=== PATIENT | female | born 1965 | race Caucasian/White ===

== ENCOUNTER 2022-03-05 08:00 | Outpatient (RCR) | payer BC, SELFPAY | END 2022-03-05 08:05 | disposition home or self-care (01) | LOC: PT 08:00 | PROVIDERS: Visit Provider Orthopaedic Surgery | DX: S46.011D Strain of muscle(s) and tendon(s) of the rotator cuff of right shoulder, subsequent encounter (principal) | CPT/HCPCS: 97010; 97014; 97016; 97033; 97110; 97140; 97163; 97164; G0283 ==

== ENCOUNTER 2023-02-25 15:27 | Emergency (ER) | payer BC, SELFPAY ==
--- NOTE | 2023-02-25 15:30 | ED_ITS ---
Discharge Plan Discharge ED Provider: Lawrence Greene [facility] General Stated complaint: pre-employment physical Time Seen by Provider: 02/25/23 15:30 [facility] Disclaimer: The information contained in this section may have been updated after the patient was seen, as this information can be updated by other users. Procedures Limited Ultrasound Disclaimer: This study was performed by me, and I personally interpreted all images. Based on my clinical judgment, this images were adequate/inadequate and did/did not necessitate further imaging.
[2023-02-25 15:34] VITALS: BP 0/0; PULSE 0; RESP 0; TEMP -17.7; TEMP 0
== END 2023-02-25 15:35 | disposition left against medical advice (07) ==
PROVIDERS: Emergency Provider Nurse Practitioner Family
DX: Z53.21 Procedure and treatment not carried out due to patient leaving prior to being seen by health care provider (principal)
CPT/HCPCS: 99211

== ENCOUNTER 2024-05-12 11:06 | Outpatient (CLI) | payer BC, SELFPAY | END 2024-05-12 23:59 | disposition home or self-care (01) | LOC: LAB.DROPOF 05-13 11:06 | PROVIDERS: PCP Nurse Practitioner; Visit Provider Nurse Practitioner | DX: N39.0 Urinary tract infection, site not specified (principal) | CPT/HCPCS: 87086; 87088; 87186 ==

== ENCOUNTER 2024-07-20 12:00 | Outpatient (CLI) | payer BC, SELFPAY ==
[2024-07-20 16:24] LABS: Microscopic, Urine URINE MICROSCOPIC (MICROSCOPIC)
[2024-07-20 21:03] LABS: Appearance,Urine CLEAR (Clear); Bilirubin,Urine Negative (Negative); Blood, Urine Negative (Negative); Color,Urine YELLOW (Yellow); Glucose,Urine (UA) Negative (Negative); Ketones,Urine Negative (Negative); Leukocyte Esterase,Urine TRACE (Negative); Nitrate,Urine Negative (Negative); Protein,Urine Negative (Negative); Specific Gravity, Urine 1.015 (1.005-1.030); Urobilinogen,Urine 0.2 EU/dl (0.2)
[2024-07-20 21:17] LABS: Bacteria,Urine Trace /lpf
[2024-07-25 07:12] LABS: Atopobium vaginae Low - 0 Score (.); BVAB2 Low - 0 Score (.); Candida albicans NAA Negative (Negative); Candida glabrata Negative (Negative); Chlamydia Trachomatis NAA Negative (Negative); HSV 1 NAA Negative (Negative); HSV 2 NAA Negative (Negative); Megasphaera 1 Low - 0 Score (.); Neisseria gonorrhoeae NAA Negative (Negative); Trich vag NAA Negative (Negative)
== END 2024-07-20 23:59 | disposition home or self-care (01) ==
LOC: LAB.DROPOF 07-21 08:52
PROVIDERS: Urology; PCP Nurse Practitioner; Visit Provider Nurse Practitioner
DX: N39.0 Urinary tract infection, site not specified (principal)
CPT/HCPCS: 81001; 87086; 87491; 87529; 87591; 87661; 87798; 87801

== ENCOUNTER 2024-07-21 18:51 | Outpatient (CLI) | payer BC, SELFPAY ==
[2024-07-21 19:11] LABS: Basophils # 0.1 K/mm3 (0-0.2); Basophils % 1.1 % (0.1-2.0); Eosinophils # 0.2 K/mm3 (0.0-0.4); Eosinophils % 3.5 % (0.1-12.0); Hematocrit 45.2 % (37.0-47.0); Hemoglobin 14.6 g/dL (12.2-16.2); Lymphocytes # 2.2 K/mm3 (0.7-4.5); Lymphocytes % 35.6 % (10-50); Mean Corpuscular HGB Conc 32.2 g/dL (31.8-35.4); Mean Corpuscular Hemoglobin 30.2 pg (27.0-31.2); Mean Corpuscular Volume 93.8 fl (81-99); Monocytes # 0.4 K/mm3 (0.1-1.0); Neutrophils # 3.3 K/mm3 (1.8-7.8); Neutrophils % 53.7 % (37.0-80.0); Platelet Count 243 K/mm3 (142-424); Red Blood Count 4.82 M/mm3 (4.20-5.40); Red Cell Distribution Width 13.3 % (11.5-17.5); White Blood Count 6.2 K/mm3 (4.8-10.8)
[2024-07-21 19:33] LABS: Blood Urea Nitrogen 14 mg/dl (7-17); Estimated Glomerular Filt Rate 86 ml/min (>60); GFR (African American) 104 ML/MIN (>60)
[2024-07-21 19:34] LABS: Anion Gap 6.3 mEq/L (5-15); Blood Urea Nitrogen 14 mg/dl (7-17); Calcium 9.3 mg/dl (8.4-10.2); Carbon Dioxide 27 mmol/L (22.0-30.0); Chloride 107 mmol/L (98-107); Estimated Glomerular Filt Rate 73 ml/min (>60); GFR (African American) 89 ML/MIN (>60); Glucose 100 mg/dl (74-100); Potassium 4.3 mmoL/L (3.5-5.1); Sodium 136 mmol/L (136-145)
== END 2024-07-21 23:59 | disposition home or self-care (01) ==
PROVIDERS: PCP Nurse Practitioner; Visit Provider Urology
DX: R31.0 Gross hematuria (principal); N39.0 Urinary tract infection, site not specified; R31.9 Hematuria, unspecified
CPT/HCPCS: 80048; 82565; 84520; 85025

== ENCOUNTER 2024-08-03 14:06 | Outpatient (CLI) | payer BC, SELFPAY ==
--- NOTE | 2024-08-03 14:08 | CT_ITS ---
FINAL REPORT TECHNIQUE: Axial CT images of the abdomen and pelvis were obtained before and after the administration of IV contrast. This study was performed with techniques to keep radiation doses as low as reasonably achievable (ALARA). Individualized dose reduction techniques using automated exposure control or adjustment of mA and/or kV according to the patient''s size were employed. CLINICAL HISTORY: UTI COMPARISON: None FINDINGS: Abdomen: The lung bases are clear. The heart is normal in size. There is mild biliary ductal dilatation, favor postcholecystectomy change. The gallbladder has been surgically resected. The spleen is unremarkable. No adrenal masses present. The pancreas has an unremarkable appearance. The kidneys enhance normally. The aorta is normal in caliber. There is no free fluid or adenopathy. No mass or abnormal fluid collection is seen. Precontrast images demonstrate no evidence of nephrolithiasis. Pelvis: The appendix is not well-seen, and may have been surgically removed. The urinary bladder is unremarkable. No inflammatory process is seen. There is no evidence of mass or adenopathy. There is no evidence of bowel obstruction. IMPRESSION: Mild biliary ductal dilatation, favor post cholecystectomy change. No acute abdominal or pelvic abnormality is identified. Reviewed, Interpreted and Dictated by Dewayne Henriquez III, MD Transcribed by Bella Garza Authenticated and [facility]
[2024-08-03] MEDS: SODIUM CHLORIDE 0.9% 10ML SYR (RAD ONLY) 10 ML IV (14:31)
[2024-08-03] MEDS: IOPAMIDOL-370 (76%);100ML BOTTLE 75 ML IV (14:31)
== END 2024-08-03 23:59 | disposition home or self-care (01) ==
LOC: RAD 14:08
PROVIDERS: PCP Nurse Practitioner; Visit Provider Urology
DX: N39.0 Urinary tract infection, site not specified (principal); R31.9 Hematuria, unspecified; R32 Unspecified urinary incontinence
CPT/HCPCS: 74178; Q9967

== ENCOUNTER 2024-08-24 19:28 | Outpatient (CLI) | payer BC, SELFPAY | END 2024-08-24 23:59 | disposition home or self-care (01) | LOC: LAB.DROPOF 19:29 | PROVIDERS: PCP Nurse Practitioner; Visit Provider Nurse Practitioner | DX: R39.198 Other difficulties with micturition (principal); B96.20 Unspecified Escherichia coli [E. coli] as the cause of diseases classified elsewhere | CPT/HCPCS: 87086; 87088; 87186 ==

== ENCOUNTER 2025-04-01 08:58 | Outpatient (CLI) | payer BC, SELFPAY ==
--- NOTE | 2025-04-01 09:00 | US_ITS ---
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 UTERUS: 5.8 cm x 3.9 cmx 2.6 cm retroverted and retroflexed with a combined endometrial thickness of 6.2mm. There appears to be a small amount of fluid within the endometrium in the lower uterine segment. The endometrium appears thickened here. It also has a cystic appearance. There are 3 fibroids seen and all are located in the anterior myometrium Fibroid 1. 0.97 cm x 0.55 cm x 0.70. Fibroid 2. 1.2 cm x 0.68 cm x 1.1 cm Fibroid 3. 1.5 cm x 1.4 cm x 1.6 cm. LEFT OVARY: 3.8 cmx1.7cm. RIGHT OVARY: 3.0cmx 1.8 cmx1.3cm with a volume of 3.7ml. There is a small follicle in the right ovary measuring 1.2 cm x 0.7 cm x 1.0 cm Both ovaries are seen and appear normal. Doppler flow to both ovaries are seen. There is no fluid in the cul-de-sac. IMPRESSION: 1. Retroverted uterus normal in shape and size. Within the anterior myometrium are 3 small fibroids. The largest measures 1.6 cm. 2. The endometrium appears thickened in the lower uterine segment and there is a small amount of fluid here as well. The endometrium here appears multicystic. Suggest endometrial sampling. 3. Both ovaries are seen and appear normal. The left ovary is slightly larger than the right ovary. There is a follicle in the right ovary measuring 1.2 cm. 4. No fluid in the cul-de-sac. Dictated by: Olivier Villalba MD 04/01/2025 19:17 Olivier Villalba MD in OV 04/01/2025 19:17
== END 2025-04-01 23:59 | disposition home or self-care (01) ==
LOC: RAD 08:58
PROVIDERS: PCP Nurse Practitioner; Visit Provider Obstetrics & Gynecology
DX: D25.1 Intramural leiomyoma of uterus (principal); N83.01 Follicular cyst of right ovary; N83.8 Other noninflammatory disorders of ovary, fallopian tube and broad ligament; R93.89 Abnormal findings on diagnostic imaging of other specified body structures; N85.4 Malposition of uterus; N85.8 Other specified noninflammatory disorders of uterus
CPT/HCPCS: 76830

== ENCOUNTER 2025-04-02 17:41 | Outpatient (CLI) | payer BC, SELFPAY ==
--- NOTE | 2025-04-02 17:44 | XR_ITS ---
PROCEDURE INFORMATION: Exam: XR Right Knee Exam date and time: 04/02/2025 5:45 PM Age: 59 years old Clinical indication: Injury or trauma; Fall; Other: Pain; Additional info: Fall w/trauma TECHNIQUE: Imaging protocol: Radiologic exam of the right knee. Views: 1 or 2 views. Total images: 3 COMPARISON: No relevant prior studies available. FINDINGS: Bones/joints: Osteopenia. No acute fracture or joint dislocation. Age-appropriate joint spaces. No concerning bone lesions or calcifications. Hazy suprapatellar opacity may reflect small joint effusion. Soft tissues: Unremarkable soft tissues. IMPRESSION: 1. No acute osseous abnormality or significant degenerative arthropathy. 2. Probable small joint effusion.
--- OUTSIDE RECORDS SUMMARY | 2025-04-02 17:45 | XMS_ITS | Clinical Summary ---
Author Organization [facility] Address [address] [place] [address] Care Team Providers Care Labor Employment Associate Name Role Phone NuñezJeny DANIEL - EARLY INTERVENTIONIST Primary Care Provider + Allergies No known active allergies Medications PARoxetine (PAXIL) 20 MG tablet Take 20 mg by mouth every morning Active ibuprofen (ADVIL;MOTRIN) 800 MG tablet Take 800 mg by mouth every 6 hours as needed for Pain Active naproxen (NAPROSYN) 500 MG tablet Take 500 mg by mouth 2 times daily (with meals) Active Active Problems Patient Care Coordination No te Formatting of this note migh t be different from the original. lori 12/12/20096 Med agreement 12/12/2015 uds 12/12/2015 Problem Noted Date Diagnosed Date Shoulder pain, right 12/12/2015 Social History Tobacco Use Types Packs/Day Years Used Date Smoking Tobacco: Never Comments Unknown Sex and Gender Information Value Date Recorded Sex Assigned at Not on file Legal Sex Female 11:33 AM EST Gender Identity Not on file Sexual Orientation Not on file Last Filed Vital Signs Vital Sign Reading Time Taken Comments Blood Pressure 145/93 12/12/2015 1:51 PM EST Pulse 106 12/12/2015 1:51 PM EST Temperature - - Respiratory Rate - - Oxygen Saturation 98% 12/12/2015 1:51 PM EST Inhaled Oxygen Concentration - - Weight 68.9 kg (152 lb) 12/12/2015 1:51 PM EST Height - - Body Mass Index - - Plan of Treatment Not on file [place] Care Teams Labor Employment Associate Relationship Specialty Start Date End Date Jeny Nñuez APRN - NP PCP - General 07/09/17
--- OUTSIDE RECORDS SUMMARY | 2025-04-02 17:45 | XMS_ITS | Clinical Summary ---
Author Organization [facility] Address [address] [place] [address] Care Team Providers Care Provider Relations Manager Name Role Phone Jessie Castaneda Primary Care Provider [phone] Allergies No known active allergies Medications Red Yeast Rice Extract (RED YEAST RICE PO) Take by mouth. Active Multiple Vitamin (multivitamin) tablet Take 1 tablet by mouth 1 (one) time each day. Active albuterol (Ventolin HFA) 108 (90 Base) MCG/ACT inhalerIndication s:Seasonal allergic rhinitis due to pollen Inhale 2 puffs every 4 (four) hours if needed for wheezing or shortness of breath. 8 g 3 Active fluticasone (Flonase) 50 MCG/ACT nasal sprayIndications: Seasonal allergic rhinitis due to pollen Administer 1 spray into each nostril 2 (two) times a day. Shake gently. Before first use, prime pump. After use, clean tip and replace cap. 16 g 12 4 Active loratadine (Claritin) 10 MG tabletIndications :Seasonal allergic rhinitis due to pollen Take 1 tablet (10 mg) by mouth 1 (one) time each day. 30 tablet 4 Active ondansetron (Zofran) 4 MG tablet Take 1 tablet (4 mg) by mouth every 6 (six) hours if needed for nausea or vomiting. 20 tablet 4 Active PARoxetine (Paxil) 30 MG tabletIndications :Generalized anxiety disorder Take 1 tablet (30 mg) by mouth 1 (one) time each day in the morning. 90 tablet 2 4 Active atenolol (Tenormin) 25 MG tabletIndications :Essential (primary) hypertension Take 1 tablet (25 mg) by mouth 1 (one) time each day. 90 tablet 3 4 Active Active Problems Problem Noted Date Diagnosed Date Osteopenia after menopause 02/08/2024 Overview (02/08/2024): - DESA ordered 01/2024. Gastroesophageal reflux disease 02/08/2024 Overview (02/08/2024): - Pepcid trial 01/2024. Urinary incontinence 12/26/2022 Overview (01/05/2023): - increasing intermittent episodes of stress incontinence - most recently when chasing after her dog - reports having tried a pessary in the past but did not like it - interested in non-surgical options PLAN - referral to pelvic floor PT placed - start vaginal estrogen Assessment & Plan (12/26/2022 4:14 PM EST): - increasing intermittent episodes of stress incontinence - most recently when chasing after her dog - reports having tried a pessary in the past but did not like it - interested in non-surgical options PLAN - referral to pelvic floor PT placed - start vaginal estrogen Generalized anxiety disorder 02/11/2022 Overview (01/05/2023): - Chronic, well controlled on Paxil 30 mg daily. Assessment & Plan (12/26/2022 4:01 PM EST): - well controlled on paxil 30mg daily - denies pervasive anxiety interfering with daily life PLAN - continue paxil 30mg daily Seasonal allergic rhinitis due to pollen 022 Overview (02/08/2024): - Flonase, Claritin. - Albuterol inhaler PRN Healthcare maintenance 01/24/2022 Overview (02/12/2024): Healthcare Maintenance Immunizations Immunization History Administered Date(s) Administered Hep A, Adult 10/07/2018 Influenza, injectable, quadrivalent 07/17/2016 Influenza, injectable, quadrivalent, preservative free 08/20/2019, 07/21/2020, 07/24/2022 Influenza, injectable, quadrivalent, preservative free, pediatric 07/17/2021 Influenza, seasonal, injectable, preservative free 08/05/2015 MMR 12/27/2015, 07/01/2018 Moderna COVID-19 Vaccine (Veneer Department Manager) 12+ years 10/24/2020, 11/21/2020 Pfizer-BioNTech COVID-19 Bivalent Booster (Perdomo Cap) 12+ years (delicia-sucrose) 07/24/2022 Pfizer-BioNTech COVID-19 Vaccine (Purple Cap) 12+ 08/19/2021 Tdap 10/28/2015, 01/28/2024 Zoster, Recombinant 12/26/2022, 03/27/2023 Cancer Screenings Cervical cancer: Last pap smear 01/2024 with negative cytology and HPV co- testing, repeat 01/2029. Breast cancer: Last mammogram 06/2022 with BIRADS 1, repeat in 06/2023. Overdue, re-ordered. Colon cancer: underwent colonoscopy in [place], [place] at [facility] at the age of 47, reportedly normal. Cologuard negative 12/2023, repeat 12/2026. Lung cancer: never smoker, not indicated Other Screenings DEXA: (2015): Low normal BMD of the lumbar spine, mild osteopenia of the left and right femoral necks. Repeat ordered 01/2024. 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 Ophthalmology: deferred Diet/Exercise The patient received dietary education because they have an above normal BMI. and The patient received exercise education because they have an above normal BMI. Assessment & Plan (12/26/2022 4:03 PM EST): Healthcare Maintenance Immunizations Immunization History Administered Date(s) Administered Hep A, Adult 10/07/2018 Influenza, injectable, quadrivalent 07/17/2016 Influenza, injectable, quadrivalent, preservative free 08/20/2019, 07/21/2020, 07/24/2022 Influenza, injectable, quadrivalent, preservative free, pediatric 07/17/2021 Influenza, seasonal, injectable, preservative free 08/05/2015 MMR 12/27/2015, 07/01/2018 Moderna COVID-19 Vaccine (Veneer Department Manager) 12+ years 10/24/2020, 11/21/2020 Pfizer-BioNTech COVID-19 Bivalent Booster (Perdomo Cap) 12+ years (delicia-sucrose) 07/24/2022 Pfizer-BioNTech COVID-19 Vaccine (Purple Cap) 12+ 08/19/2021 Tdap 10/28/2015 - shringrix today in clinic Cancer Screenings ? Cervical cancer: pap last done 2018 with negative cytology and HPV co-testing (will attempt to obtain records), pap smear due 2023. ? Breast cancer: Last mammogram 06/2022 with BIRADS 1, repeat in 06/2023. ? Colon cancer: underwent colonoscopy in [place], [place] at [facility] at the age of 47, reportedly normal. Order placed for repeat screening colonoscopy. ? Lung cancer: never smoker, not indicated Other Screenings ? DEXA: (2016): Low normal BMD of the lumbar spine, mild osteopenia of the left and right femoral necks Labs The 10-year ASCVD risk score (Promise SWAIN, et al., 2019) is: 4% Values used to calculate the score: Age: 57 years Sex: Female Is Non- : No Diabetic: No Tobacco smoker: No Systolic Blood Pressure: 128 mmHg Is BP treated: Yes HDL Cholesterol: 49 mg/dL ? Total Cholesterol: 203 mg/dL ? A1c: Lab Results Component Value Date HGBA1C 5.2 07/23/2022 ? 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 Dentist: sees regularly ? Dermatology: Referred 12/2021. ? Ophthalmology: deferred Essential (primary) hypertension 11/20/2016 Overview (02/08/2024): - Chronic, controlled on Atenolol 25 mg daily. - Cough with lisinopril in the past. Assessment & Plan (12/26/2022 4:00 PM EST): - well controlled - BP 128/84 in clinic today - denies lightheadedness, nausea, changes in vision PLAN - continue atenolol 25mg daily Polyarthralgia 11/20/2016 Overview (01/05/2023): - Hand x-ray 12/2021: Mild bilateral osteoarthrosis of the hands. No erosions are noted. - RF in 06/2022 was 33, anti-CCP negative, CRP and ESR negative. Resolved Problems Problem Noted Date Diagnosed Date Resolved Date Traumatic complete tear of right rotator cuff 11/16/19 22 02/08/2024 Overview (02/11/2022): -was injured back late of last year 2020, has since been repaired and notes no issues Left shoulder pain 10/13/2015 4 Right shoulder pain 07/11/2015 02/08/20 24 Left knee pain 02/19/2014 02/08/2024 Patellar contusion 02/19/2014 4 Pain in limb 11/09/2010 02/08/2024 Female stress incontinence 07/15/2008 0 02/08/2024 Disorder of bone and cartilage 06/24/2008 02/08/2024 Unspecified urinary incontinence 06/24/2008 02/08/2024 Excessive or frequent menstruation 06/01/2008 02/08/2024 Acute pain due to trauma 07/08/2007 Encounters Date Type Department Care Team Description 01/01/2025 Education [facility] [address] [place] [address] Kristal Case, RN from Last 3 Months Immunizations Immunization Administration Dates Next Due Hep A, Adult 10/07/2018 Influenza, injectable, quadrivalent 07/17/2016 Influenza, injectable, quadr ivalent, preservative free 07/24/2022,07/21/2020,08/20/2019 Influenza, injectable, quadr ivalent, preservative free, pediatric 07/17/2021 Influenza, seasonal, injecta ble, preservative free 08/05/2015 MMR 07/01/2018,12/27/2015 Moderna COVID-19 Vaccine (Re d Cap) 12+ years 11/21/2020,10/24/2020 Tdap 01/28/2024,10/28/2015 Zoster, Recombinant 03/27/2023,12/26/2022 Family History Medical History Relation Name Comments Alcohol abuse Father Max Heart attack Father Max Heart disease Father Max Hypertension Father Max Arthritis Maternal Grandfather Bashir Rheum arthritis Maternal Grandfather Bashir Rheumatologic disease Maternal Grandfather Bashir Stroke Maternal Grandfather Bashir Arthritis Mother Paige Autoimmune disease Mother Paige Depression Mother Paige Heart attack Mother Paige Heart disease Mother Paige Hypertension Mother Paige Osteoporosis Mother Paige Rheum arthritis Mother Paige Rheumatologic disease Mother Paige Relation Name Status Comments Father Max Maternal Grandfather Bashir Mother Paige Social History Tobacco Use Types Packs/Day Years Used Date Smoking Tobacco: Never Passive Smoke Exposure: Past Smokeless Tobacco: Never Passive Exposure Comments:Wh en she was a child Alcohol Use Standard Drinks/Week Comments Yes 7 (1 standard drink = 0.6 oz pure alcohol) Alcoholic Drinks/day: Minimum alcohol consumption Humiliation, Afraid, Rape, and Kick questionnair e Answer Date Recorded Within the last year, have y ou been afraid of your partner or ex-partner? No 01/24/2024 Within the last year, have y ou been humiliated or emotionally abused in other ways by your partner or ex-partner? No Within the last year, have y ou been kicked, hit, slapped, or otherwise physically hurt by your partner or ex-partner? No 01/24/2024 Within the last year, have y ou been raped or forced to have any kind of sexual activity by your partner or ex-partner? No 01/24/2024 PHQ-2 Answer Date Recorded Patient Health Questionnaire-2 Score 0 01/28/2024 Hunger Vital Sign Answer Date Recorded Within the past 12 months, y ou worried that your food would run out before you got the money to buy more. Never true 01/24/20 24 Within the past 12 months, t he food you bought just didn't last and you didn't have money to get more. Never true 01/24/2024 PRAPARE - Transportation Answer Date Re corded In the past 12 months, has l ack of transportation kept you from medical appointments or from getting medications? No 12/27 In the past 12 months, has l ack of transportation kept you from meetings, work, or from getting things needed for daily living? No 01/24/2024 Housing Stability Vital Sign Answer Tavo e Recorded In the last 12 months, was t here a time when you were not able to pay the mortgage or rent on time? No 01/24/2024 Number of Places Lived in the Last Year Not on f ile 01/24/2024 In the last 12 months, was t here a time when you did not have a steady place to sleep or slept in a alf (including now)? No 01/24/2024 Utilities Answer Date Recorded In the past 12 months has th e electric, gas, oil, or water company threatened to shut off services in your home? No 01/24/2024 PHQ-2A Answer Date Recorded Patient Health Questionnaire-2 Score 0 12/26/2022 Comments No Sex and Gender Information Value Date Recorded Sex Assigned at Not on file Legal Sex Female 6:02 PM EDT Gender Identity Not on file Sexual Orientation Not on file Last Filed Vital Signs Vital Sign Reading Time Taken Comments Blood Pressure 160/98 01/28/2024 9:01 AM EDT Pulse 72 01/28/2024 8:06 AM EDT Temperature 37 C (98.6 F) 01/28/2024 8:06 AM EDT Respiratory Rate 15 11/24/2021 12:4 5 PM EST Oxygen Saturation 95% 12/21/2021 11: 16 AM EST Inhaled Oxygen Concentration - - Weight 70.3 kg (154 lb 15.7 oz) 01/28/2024 8:06 AM EDT Height 162.6 cm (5' 4 ) 12/26/2022 3:40 PM EST Body Mass Index 26.6 12/26/2022 3:40 PM EST Plan of Treatment Health Maintenance Due Date Last Done Comments [facility]-HIV Screening 1965 [facility]-/Child/Adol SDOH Screenings 1965 [facility]- SDOH Screenings 1982 [facility]-Adult SDOH Screenings 1982 CT Colonography 2009 Colonoscopy 2009 FIT 2009 FOBT 2009 Sigmoidoscopy 2009 [facility]-Pneumococcal Vaccine: 50+ Years (1 of 1 - PCV) 2014 XSY-UAXOW-18 Vaccine ( season) 2024 07/24/2022, 08/19/2021, 11/21/2020, Additional history exists [facility]-Breast Cancer Screening 07/23/202406/29, 12/20/2020, 07/05/2015 [facility]-Depression Screening 01/27/2025 01/28/2024, 06/29 [facility]-Influenza Vaccine (Season Ended) 2025 07/24/2022, 07/17/2021, 07/21/2020, Additional history exists FIT-DNA 01/04/2027 01/05/2024 [facility]-Colorectal Cancer Screening 01/04/2027 [facility]-Pap Smear 01/27/2027 01/28/2024 [facility]-Cervical Cancer Screening 01/27/2029 [facility]-HPV/Cotest 01/27/2029 01/28/2024 [facility]-DTaP,Tdap,and Td Vaccines (3 - Td or Tdap) 01/27/2034 01/28/2024, 10/28/2015 [facility]-RSV Vaccine: 60+ Years or (1 - 1-dose 75+ series) 2039 [facility]-Hepatitis C Screening Completed 11/20/2016 [facility]-Hepatitis A Vaccines Aged Out 10/07/2018 No longer eligible based on patient's age to complete this topic [facility]-Zoster Vaccines Completed 03/27/2023, [facility]-Obesity Intervention Completed 024, 01/28/2024, 01/28/2024, Additional history exists HPV Vaccines Aged Out No longer eligi ble based on patient's age to complete this topic [facility]-HIB Vaccines Aged Out No longer e ligible based on patient's age to complete this topic [facility]-IPV Vaccines Aged Out No longer e ligible based on patient's age to complete this topic [facility]-Rotavirus Vaccines Aged Out No lo nger eligible based on patient's age to complete this topic Medical Devices Implanted Type Area Green Meat Packer Device Identifier Shelf Expiration Date Model / Serial / Lot [place] All Suture Qfix 2.8mm - [id number] Implanted:Qty : 1 on 11/24/2021 by Renato Heath MD at [facility] [place] Right: Shoulder [employer] ([employer])-[id number] [id number] 25-2800 / / [id number] [place] Ultra Twinfix 5.5 - [id number] - [id number] Implanted:Qty : 1 on 11/24/2021 by Renato Heath MD at [facility] Right: Shoulder [employer] ([employer])-[id number] 07/04/2026 [id number] / [id number] / Procedures Procedure Name Priority Date/Time Associated Diagnosis Comments PAP TEST - CYTOLOGY Routine 01/28/2024 9 :13 AM EDT Healthcare maintenance LAB COLOGUARD COLON CANCER SCREEN Routine 01/05/2024 11:00 AM EDT Encounter for screening for malignant neoplasm of colon MAMMOGRAPHY BREAST SCREENING TOMOSYNTHESIS BILATERAL Routine 07/23/2022 3:36 PM EDT Healthcare maintenance HEPATITIS C ANTIBODY W/REFLEX TO HCV QUANT PCR Routine 11/20/2016 10:04 AM EST from Last 3 Months or Most Recently Relevant to Health Maintenance Results * Pap Test (01/28/2024 9:13 AM EDT) Case Report Cytology Case: [id number] Authorizing Provider: Jessie Castaneda DO Collected: 01/28/2024 0913 Ordering Location: [facility] Received: 01/29/2024 0924 Internal Medicine First Screen: Madeline Soto Specimen: ThinPrep Pap Test, Liquid-Based Cervical/Vaginal 02/10/2024 2:26 PM EDT [facility] Interpretation NEGATIVE FOR INTRAEPITHELIAL LESION OR MALIGNANCY 02/10/2024 2:26 PM EDT [facility] at 1426 EDT Specimen Adequacy Satisfactory for evaluation; endocervical/membreno sformation zone component present. Slide scanned and imaged by [employer] Imaging System with manual review of all selected brown. 02/10/2024 2:26 PM EDT [facility] Cervical cytology is a screening test primarily for squamous cancers and precursors and has associated false negative and positive results. New technologies such as liquid based sampling may decrease but will not eliminate all false negative results. Regular screening and follow-up of unexplained clinical signs and symptoms are recommended to minimize false negative results. Please see the ASCCP website (www.asccp.org)fo r followup recommendations. If HPV testing was requested, correlation with the results is suggested (please call Microbiology at [phone] for results). 02/10/2024 2:26 PM EDT [facility] Menstrual Status Post-Menopausal 2:26 PM EDT [facility] Contraceptive History Not Applicable 02/10/2024 2:26 PM EDT [facility] Screening Type Routine Screen 2023 2:26 PM EDT [facility] High Risk? No 02/10/2024 2:26 PM EDT [facility] HPV Testing Requested? Request HPV Testing Regardless of Pap Test Findings 02/10/2024 2:26 PM EDT [facility] Previous Cancer History No 02/10/2024 2:26 PM EDT [facility] Clinical Information Z00.00 - Healthcare maintenance [ICD-10-CM] 02/10/2024 2:26 PM EDT [facility] Swab Vaginal and cervical cytologic material / Unknown Non-blood Collection / Unknown 01/28/2024 9:13 AM EDT 01/29/2024 9:24 AM EDT us Jessie Castaneda DO LAB CYTOLOGY ORDERABLES Final Result [facility] [address] [place] [address] * Cologuard?? colon cancer screening (01/05/2024 11:00 AM EDT) Cologuard Negative Negative 01/12/2024 12:05 AM EDT [facility] (CLIA #:[id number]) Comment: NEGATIVE TEST RESULT. A negative Cologuard result indicates a low likelihood that a colorectal cancer (CRC) or advanced adenoma (adenomatous polyps with more advanced pre-malignant features) is present. The chance that a person with a negative Cologuard test has a colorectal cancer is less than 1 in 1500 (negative predictive value >99.9%) or has an advanced adenoma is less than 5.3% (negative predictive value 94.7%). These data are based on a prospective cross-sectional study of 10,000 individuals at average risk for colorectal cancer who were screened with both Cologuard and colonoscopy. (Aguila Becker al, N Engl J Med 2014;370(14):4185-7858) The normal value (reference range) for this assay is negative. COLOGUARD RE-SCREENING RECOMMENDATION: Periodic colorectal cancer screening is an important part of preventive healthcare for asymptomatic individuals at average risk for colorectal cancer. Following a negative Cologuard result, the [place] [employer] and U.S. Multi-Society Task Force screening guidelines recommend a Cologuard re-screening interval of 3 years. References: [place] [employer] Guideline for Colorectal Cancer Screening: https://www.cancer.org/cancer/zthnv-yugeve-jqjhyh/pktmnuedq-swezeinro-iuteqrp/ac s-rec ommendations.html.; Khurram DK, Yomaira CR, Burak ChristensenK, Colorectal Cancer Screening: Recommendations for Physicians and Patients from the U.S. Multi-Society Task Force on Colorectal Cancer Screening , Am J Gastroenterology 2017; 112:4120-8683. TEST DESCRIPTION: Composite algorithmic analysis of stool DNA-biomarkers with hemoglobin immunoassay. Quantitative values of individual biomarkers are not reportable and are not associated with individual biomarker result reference ranges. Cologuard is intended for colorectal cancer screening of adults of either sex, 45 years or older, who are at average-risk for colorectal cancer (CRC). Cologuard has been approved for use by the U.S. FDA. The performance of Cologuard was established in a cross sectional study of average-risk adults aged 50-84. Cologuard performance in patients ages 45 to 49 years was estimated by sub-group analysis of near-age groups. Colonoscopies performed for a positive result may find as the most clinically significant lesion: colorectal cancer [4.0%], advanced adenoma (including sessile serrated polyps greater than or equal to 1cm diameter) [20%] or non- advanced adenoma [31%]; or no colorectal neoplasia [45%]. These estimates are derived from a prospective cross-sectional screening study of 10,000 individuals at average risk for colorectal cancer who were screened with both Cologuard and colonoscopy. (Aguila Becker al, N Engl J Med 2014;370(14):6782-4447.) Cologuard may produce a false negative or false positive result (no colorectal cancer or precancerous polyp present at colonoscopy follow up). A negative Cologuard test result does not guarantee the absence of CRC or advanced adenoma (pre-cancer). The current Cologuard screening interval is every 3 years. ([place] [employer] and U.S. Multi-Society Task Force). Cologuard performance data in a 10,000 patient pivotal study using colonoscopy as the reference method can be accessed at the following location: www.Jdguanjia/results. Additional description of the Cologuard test process, warnings and precautions can be found at www.OneSunogSmartProcurerd.Geoloqi. Stool specimen (specimen) 01/05/2024 11:00 AM EDT 01/07/2024 9:23 AM EDT Jessie Castaneda DO LAB MOLECULAR DIAGNOSTICS GEOVANNA SOTO Final Result [facility] (CLIA #:[id number]) [address] [place] [address], * Mammography Breast Screening Tomosynthesis Bilateral (07/23/2022 3:36 PM EDT) Anatomical Region Laterality Modality Breast Bilateral Mammography Impressions 07/28/2022 3:39 PM EDT No mammographic evidence of malignancy. BI-RADS CATEGORY: Overall: 1 - Negative RECOMMENDATION: - Routine Screening Mammogram in 1 Year. Patient Lifetime Risk Score of Breast Malignancy: 9.7 % This risk assessment is calculated using the Maria M Risk Assessment model which may underestimate the lifetime risk of breast malignancy. COMMUNICATION: Computer-aided detection (CAD) and tomosynthesis were utilized by the radiologist in the interpretation of this examination. The results and recommendations will be sent to the patient in a printed lay language version of the imaging report. Narrative 07/28/2022 3:39 PM EDT EXAM: Mammography Breast Screening with Tomosynthesis REASON FOR EXAM: Screening Mammogram HISTORY: Patient is 56 y.o. Hormone history includes control. Surgical history includes bilateral breast surgery, 2019 (reduction). COMPARISON STUDIES: Compared to: 10/15/2017 Mammography Outside Images Upload at [facility] 12/20/2020 Mammography Outside Images Upload at [facility] BREAST COMPOSITION: The breasts have scattered areas of fibroglandular density. FINDINGS: There are no suspicious masses, calcifications, or areas of architectural distortion. us Jessie Castaneda DO IMG BI PROCEDURES Final Result * Hepatitis C Antibody (11/20/2016 10:04 AM EST) Hepatitis C Antibody NEGATIVE Reference Range: Negative [facility] 11/20/2016 10:0 4 AM EST 11/20/2016 12:58 PM EST Indy Alonso MD LAB BLOOD ORDERABLES Final Re sult [facility] from Last 3 Months or Most Recently Relevant to Health Maintenance Insurance MARIELLA Care Teams Provider Relations Manager Relationship Specialty Start Date End Date Jessie Castaneda DO [address] [id number] PCP - General Internal Medicine 01/24/22
--- OUTSIDE RECORDS SUMMARY | 2025-04-02 17:45 | XMS_ITS | Clinical Summary ---
Author Organization [facility] Address [address] [place] [phone] Phone Care Team Providers Care Floor Renovator Name Role Phone Unavailable Primary Care Provider Unavailabl e Allergies No known active allergies Medications No known medications Active Problems Problem Noted Date Diagnosed Date Mixed stress and urge urinary incontinence 11/11 OAB (overactive bladder) 11/11/2024 History of gross hematuria 11/11/2024 Social History Tobacco Use Types Packs/Day Years Used Date Smoking Tobacco: Never Assessed Comments No Sex and Gender Information Value Date Recorded Sex Assigned at Not on file Legal Sex Female 11:10 AM EST Gender Identity Not on file Sexual Orientation Not on file Obstetrics History Para Term AB IAB SAB Ectopic Multiple Livin g Live Births 1 10 28 Date Outcome GA Total Labor Labor/2nd/3rd Weight Sex Type Anes PTL Shahnaz A1 A5 Name Clin Term Last Filed Vital Signs Vital Sign Reading Time Taken Comments Blood Pressure - - Pulse 69 11/11/2024 9:13 AM EST Temperature - - Respiratory Rate - - Oxygen Saturation 99% 11/11/2024 9:13 AM EST Inhaled Oxygen Concentration - - Weight 72.4 kg (159 lb 9.6 oz) 11/11/2024 9:13 A M EST Height - - Body Mass Index - - Plan of Treatment Health Maintenance Due Date Last Done Comments Annual Wellness Exam 1967 Hepatitis C Screening 1982 HPV/Pap Cotest 1994 Cologuard 2009 Colon Cancer Screening 2009 Colonoscopy 2009 FIT 2009 Sigmoidoscopy 2009 Virtual Colonography 2009 Pneumococcal Vaccine 50+ (1 of 1 - PCV) 2014 COVID-19 Vaccine ( season) 2024 07/24/2022, 08/19/2021, 11/21/2020, Additional history exists Breast Cancer Screening 07/23/2024 07/23/2022, 07/23 Influenza Vaccine (Season Ended) 2025 07/24/2022, 07/17/2021, 07/21/2020, Additional history exists Cervical Cancer Screening 01/27/2027 Pap Smear 01/27/2027 01/28/2024, 01/28/2024 DTaP/TDaP/Td (3 - Td or Tdap) 01/27/2034 01/28/2024, 10/28/2015 Zoster Completed 03/27/2023, 12/26/2022 Hepatitis B Vaccine Aged Out No longe r eligible based on patient's age to complete this topic Meningococcal B Vaccine Aged Out No l onger eligible based on patient's age to complete this topic Insurance [facility] [address] [address] MARIELLA PPO MARIELLA PPO
--- OUTSIDE RECORDS SUMMARY | 2025-04-02 17:45 | XMS_ITS | Encounter Summary ---
Author Organization [facility] Address [address] [place] [address] Care Team Providers Care Retail Pharmacist Name Role Phone Ritu Man FOUNDER & CEO Primary Care Provider [phone] Jessie Castaneda DO Primary Care Provider [phone] Jose Daniel Garcia MD Unavailable [phone] Reason for Visit * Reason Onset Date Comments Med Refill 11/14/2021 Encounter Details Date Type Department Care Team (Late st Contact Info) Description 11/14/2021 Refill [facility] [address] [place] [address] Ritu Man APRN [address] [place] [address] Acute pain of right shoulder Social History Tobacco Use Types Packs/Day Years Used Date Smoking Tobacco: Never Smokeless Tobacco: Never Alcohol Use Standard Drinks/Week Comments Yes 4 (1 standard drink = 0.6 oz pure alcohol) Alcoholic Drinks/day: Minimum alcohol consumption PHQ-2 Answer Date Recorded Patient Health Questionnaire-2 Score 0 07/17/2021 Comments Unknown Sex and Gender Information Value Date Recorded Sex Assigned at Not on file Legal Sex Female 6:02 PM EDT Gender Identity Not on file Sexual Orientation Not on file COVID-19 Exposure Response Date Recorded In the last month, have you been in contact with someone who was confirmed or suspected to have Coronavirus / COVID-19? No / Unsure 11/16/2021 8:57 AM EST documented as of this encounter Plan of Treatment Not on file documented as of this encounter Visit Diagnoses Diagnosis Acute pain of right shoulder documented in this encounter Additional Health Concerns Assessment Noted Time PHQ-9 Depression Total Score: 2 07/17/20 8:34 AM EDT A fall risk assessment has been complete d for the patient 11/10/2021 8:58 AM EST documented as of this encounter Care Teams Retail Pharmacist Relationship Specialty Start Date End Date Ritu Man APRN [address] [place] [phone] PCP - General Family Medicine 07/19/21 01/23/22 Jessie Castaneda DO [address] [address] PCP - General Internal Medicine 01/24/22 Jose Daniel Garcia MD [address] [place] [address] Resident Internal Medicine 12/26/22 04/10/23 documented as of this encounter
== END 2025-04-02 23:59 | disposition home or self-care (01) ==
LOC: RAD 17:43
PROVIDERS: PCP Nurse Practitioner; Visit Provider Family Medicine
DX: T14.90XA Injury, unspecified, initial encounter (principal); R93.6 Abnormal findings on diagnostic imaging of limbs; W19.XXXA Unspecified fall, initial encounter
CPT/HCPCS: 73560

== ENCOUNTER 2025-04-23 09:06 | Outpatient (CLI) | payer BC, SELFPAY ==
--- OUTSIDE RECORDS SUMMARY | 2025-04-23 09:09 | XMS_ITS | Clinical Summary ---
Author Organization [facility] Address [address] [place] [phone] Phone Care Team Providers Care Medical Laboratory Technicians Name Role Phone Unavailable Primary Care Provider [...] patient's age to complete this topic Insurance [facility] [address] [address] MARIELLA PPO MARIELLA PPO
--- OUTSIDE RECORDS SUMMARY | 2025-04-23 09:09 | XMS_ITS | Encounter Summary ---
Author Organization [facility] Address [address] [place] [address] Care Team Providers Care Mechanical Unit Repairer Name Role Phone Jessie Castaneda DO Primary Care Provider [phone] Reason for Visit * Reason Comments Med Refill Encounter Details Date Type Department Care Team (Late st Contact Info) Description 04/16/2025 Refill [facility] Internal Medicine [address] [place] [address] Jessie Castaneda DO [address] [place] [address] Generalized anxiety disorder Social History Tobacco Use Types Packs/Day Years [...] place to sleep or slept in a [place] health care facility (including now)? No 01/24/2024 Utilities Answer Date [...] on file Sexual Orientation Not on file documented as of this encounter Plan of Treatment Not on file documented as of this encounter Visit Diagnoses Diagnosis Generalized anxiety disorder documented in this encounter Additional Health Concerns Assessment Noted Time PHQ-9 Depression Total Score: 2 07/17/20 21 8:34 AM EDT A fall risk assessment has been complete d for the patient 04/26/2022 9:18 AM EDT A Body Mass Index follow-up plan has been documented for the patient 02/08/2024 9:34 PM EDT documented as of this encounter Care Teams Mechanical Unit Repairer Relationship Specialty Start Date End Date Jessie Castaneda DO [address] [address] PCP - General Internal Medicine 01/24/22 documented as of this encounter
--- OUTSIDE RECORDS SUMMARY | 2025-04-23 09:09 | XMS_ITS | Clinical Summary ---
Author Organization [facility] Address [address] [place] [address] Care Team Providers Care Plant Maintenance Worker Name Role Phone Jessie Castaneda Primary Care Provider [phone] Allergies No known active allergies Medications Red [...] 08/05/2015 MMR 12/27/2015, 07/01/2018 Moderna COVID-19 Vaccine (Industrial Relations Representative) 12+ years 10/24/2020, 11/21/2020 Pfizer-BioNTech COVID-19 Bivalent Booster (Perdomo Cap) 12+ years (delicia-sucrose) 07/24/2022 Pfizer-BioNTech COVID-19 Vaccine (Purple Cap) 12+ 08/19/2021 Tdap 10/28/2015, 01/28/2024 Zoster, Recombinant 12/26/2022, 03/27/2023 Cancer Screenings Cervical cancer: Last pap smear 01/2024 with negative cytology and HPV co- testing, repeat 01/2029. Breast cancer: Last mammogram 06/2022 with BIRADS 1, repeat in 06/2023. Overdue, re-ordered. 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 [...] 08/05/2015 MMR 12/27/2015, 07/01/2018 Moderna COVID-19 Vaccine (Industrial Relations Representative) 12+ years 10/24/2020, 11/21/2020 Pfizer-BioNTech COVID-19 Bivalent [...] 06/2023. ? 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 Dentist: sees regularly ? Dermatology: [...] Encounters Date Type Department Care Team Description 04/16/2025 [facility] Internal Medicine [address] [place] [address] Jessie Castaneda, DO Generalized anxiety disorder from Last 3 Months Immunizations Immunization Administration [...] place to sleep or slept in a snf (including now)? No 01/24/2024 Utilities Answer Date [...] Date Last Done Comments [facility]-HIV Screening 1964 [facility]-Infant/Child/Adol SDOH Screenings 1964 [facility]- SDOH Screenings 1982 [facility]-Adult SDOH Screenings 1982 CT Colonography 2009 Colonoscopy 2009 FIT 2009 FOBT 2009 Sigmoidoscopy 2009 [facility]-Pneumococcal Vaccine: 50+ Years (1 of 1 - PCV) 2014 [id number]-69 Vaccine ( - season) 2024 07/24/2022, 08/19/2021, 11/21/2020, Additional history [...] this topic Medical Devices Implanted Type Area Box Fabricator Device Identifier Shelf Expiration Date Model / Serial / Lot [place] All Suture Qfix 2.8mm - [id number] Implanted:Qty : 1 on 11/24/2021 by Renato Heath MD at [facility] [place] Right: Shoulder [employer] (Acufex)-[id number] 2024 25-2800 / / [id number] [place] Ultra Twinfix 5.5 - [id number] - [id number] Implanted:Qty : 1 on 11/24/2021 by Renato Heath MD at [facility] Right: Shoulder [employer] (Acufex)-[id number] 07/04/2026 [id number] / [id number] / Procedures Procedure Name Priority Date/Time Associated [...] 9:13 AM EDT) Case Report Cytology Case: [id number] Authorizing Provider: Jessie Castaneda DO Collected: 01/28/202413 Ordering Location: [facility] Received: 01/29/2024 0924 Internal Medicine First Screen: Madeline Soto Specimen: ThinPrep Pap Test, Liquid-Based Cervical/Vaginal 02/10/2024 2:26 PM EDT [facility] Interpretation NEGATIVE FOR INTRAEPITHELIAL LESION OR MALIGNANCY 02/10/2024 2:26 PM EDT [facility] at 1426 EDT Specimen Adequacy Satisfactory for evaluation; endocervical/membreno sformation zone component present. Slide scanned and imaged by Daniel Vosovic LLCPrep Imaging System with manual review of all selected brown. 02/10/2024 2:26 PM EDT [facility] Cervical cytology is a [...] results is suggested (please call Microbiology at [phone] for results). 02/10/2024 2:26 PM EDT [facility] Menstrual Status Post-Menopausal 2:26 PM EDT [facility] Contraceptive History Not Applicable 02/10/2024 2:26 PM EDT [facility] Screening Type Routine Screen 2023 2:26 PM EDT [facility] High Risk? No 02/10/2024 2:26 PM EDT [facility] HPV Testing Requested? Request HPV Testing Regardless of Pap Test Findings 02/10/2024 2:26 PM EDT [facility] Previous Cancer History No 02/10/2024 2:26 PM EDT [facility] Clinical Information Z00.00 - Healthcare maintenance [ICD-10-CM] 02/10/2024 2:26 PM EDT [facility] Swab Vaginal and cervical cytologic material / Unknown Non-blood Collection / Unknown 01/28/2024 9:13 AM EDT 01/29/2024 9:24 AM EDT us Jessie Castaneda DO LAB CYTOLOGY ORDERABLES Final Result [facility] [address] [place] [address] * Cologuard?? colon cancer screening (01/05/2024 11:00 AM EDT) Cologuard Negative Negative 01/12/2024 12:05 AM EDT [facility] (CLIA #:[id number]) Comment: NEGATIVE TEST RESULT. A negative Cologuard [...] (Aguila Becker al, N Engl J Med 2014;370(14):3598-5328) The normal value (reference range) for this assay is negative. COLOGUARD RE-SCREENING RECOMMENDATION: Periodic colorectal cancer screening is an important part of preventive healthcare for asymptomatic individuals at average risk for colorectal cancer. Following a negative Cologuard result, the [place] Cancer Society and U.S. Multi-Society Task Force screening guidelines recommend a Cologuard re-screening interval of 3 years. References: [place] Cancer Society Guideline for Colorectal Cancer Screening: https://www.cancer.org/cancer/qmvzp-immuoz-ktakwg/vyzsawbtn-sswysqfkh-dcxmpxn/ac s-rec ommendations.html.; Khurram DK, Yomaira CR, Burak ChristensenK, Colorectal Cancer Screening: Recommendations for Physicians and Patients from the U.S. Multi-Society Task Force on Colorectal Cancer Screening , Am J Gastroenterology 2017; 112:1232-0214. TEST DESCRIPTION: Composite algorithmic analysis of stool [...] (Aguila Becker al, N Engl J Med 2014;370(14):4942-8198.) Cologuard may produce a false negative or false positive result (no colorectal cancer or precancerous polyp present at colonoscopy follow up). A negative Cologuard test result does not guarantee the absence of CRC or advanced adenoma (pre-cancer). The current Cologuard screening interval is every 3 years. ([place] Cancer Society and U.S. Multi-Society Task Force). Cologuard performance data in a 10,000 patient pivotal study using colonoscopy as the reference method can be accessed at the following location: www.Leadhit.Nosopharm/results. Additional description of the Cologuard test process, warnings and precautions can be found at www.TapTrakogAgora Shoppingrd.com. Stool specimen (specimen) 01/05/2024 11:00 AM EDT 01/07/2024 9:23 AM EDT us Jessie Castaneda DO LAB MOLECULAR DIAGNOSTICS GEOVANNA SOTO Final Result [facility] (CLIA #:[id number]) [address] [place] [address], * Mammography Breast Screening Tomosynthesis Bilateral (07/23/2022 [...] to: 10/15/2017 Mammography Outside Images Upload at [facility] 12/20/2020 Mammography Outside Images Upload at [facility] BREAST COMPOSITION: The breasts have scattered areas of fibroglandular density. FINDINGS: There are no suspicious masses, calcifications, or areas of architectural distortion. us Jessie Castaneda DO IMG BI PROCEDURES Final Result * Hepatitis C Antibody (11/20/2016 10:04 AM EST) Hepatitis C Antibody NEGATIVE Reference Range: Negative [facility] 11/20/2016 10:0 4 AM EST 11/20/2016 12:58 PM EST us Indy Alonso MD LAB BLOOD ORDERABLES Final Re sult [facility] from Last 3 Months or Most Recently Relevant to Health Maintenance Insurance MARIELLA Care Teams Plant Maintenance Worker Relationship Specialty Start Date End Date Jessie Castaneda DO [address] [address] PCP - General Internal Medicine 01/24/22
--- OUTSIDE RECORDS SUMMARY | 2025-04-23 09:09 | XMS_ITS | Clinical Summary ---
Author Organization [facility] Address [address] [place] [address] Care Team Providers Care Coin Teller Name Role Phone NuñezJeny DANIEL - RUBBER TESTER Primary Care Provider + Allergies No known [...] Plan of Treatment Not on file Insurance [place] Care Teams Coin Teller Relationship Specialty Start Date End Date Jeny Nuñez APRN - NP PCP - General 07/09/17
--- OUTSIDE RECORDS SUMMARY | 2025-04-23 09:09 | XMS_ITS | Encounter Summary ---
Author Organization [facility] Address [address] [place] [address] Care Team Providers Care Charter Driver Name Role Phone Ritu Man GLAZE MAKER Primary Care Provider [phone] Jessie Castaneda DO Primary Care Provider [phone] Jose Daniel Garcia MD Unavailable [phone] Reason for Visit * Reason Onset Date Comments Med Refill 11/14/2021 Encounter Details Date Type Department Care Team (Late st Contact Info) Description 11/14/2021 Refill [facility] [address] [place] [address] Ritu Man APRN [address] [place] [address] Acute pain of right shoulder [...] documented as of this encounter Care Teams Charter Driver Relationship Specialty Start Date End Date Ritu Man APRN [address] [place] [phone] PCP - General Family Medicine 07/19/21 01/23/22 Jessie Castaneda DO [address] [address] PCP - General Internal Medicine 01/24/22 Jose Daniel Garcia MD [address] [place] [address] Resident Internal Medicine 12/26/22 04/10/23 documented as of this encounter
[2025-04-23 09:22] VITALS: BMI 26.4
[2025-04-23 09:56] LABS: Basophils # 0.1 K/mm3 (0-0.2); Basophils % 1.5 % (0.1-2.0); Eosinophils # 0.3 Kmm3 (0.0-0.4); Eosinophils % 4.9 % (0.1-12.0); Hematocrit 41.9 % (37.0-47.0); Hemoglobin 14.1 g/dL (12.2-16.2); Immature Granulocytes # 0.02 10^3uL; Immature Granulocytes % 0.4 %; Lymphocytes # 1.8 K/mm3 (0.7-4.5); Lymphocytes % 33.4 % (10-50); Mean Corpuscular HGB Conc 33.7 g/dL (31.8-35.4); Mean Corpuscular Hemoglobin 29.1 pg (27.0-31.2); Mean Corpuscular Volume 86.4 fl (81-99); Mean Platelet Volume 9.8 fl (7.4-10.4); Monocytes # 0.4 K/mm3 (0.1-1.0); Monocytes % 7.4 % (1.7-9.3); Neutrophils # 2.9 K/mm3 (1.8-7.8); Neutrophils % 52.4 % (37.0-80.0); Nucleated Red Blood Cells # 0 10^3/uL; Nucleated Red Blood Cells % 0 %; Platelet Count 239 K/mm3 (142-424); Red Blood Count 4.85 M/mm3 (4.20-5.40); Red Cell Distribution Width 11.9 % (11.5-17.5); Red Cell Distribution Width-SD 37.9 fL; White Blood Count 5.5 K/mm3 (4.8-10.8)
[2025-04-23 10:10] LABS: Chol/HDL Ratio 4.4 (1-3.5); Cholesterol 202 mg/dl (140-200); HDL Cholesterol 46 mg/dl (40-60); Triglycerides 148 mg/dl (30-150); VLDL Cholesterol 30 mg/dL (0-40)
[2025-04-23 10:11] LABS: Alanine Aminotransferase 29 U/L (12-78); Albumin Level 4.2 g/dl (3.5-5.0); Albumin/Globulin Ratio 1.5 (1.1-1.8); Alkaline Phosphatase 97 U/L (38-126); Anion Gap 11.4 mEq/L (5-15); Aspartate Amino Transferase 36 U/L (14-36); Bilirubin,Total 0.7 mg/dl (0.2-1.3); Blood Urea Nitrogen 15 mg/dl (7-17); Calcium 9.6 mg/dl (8.4-10.2); Carbon Dioxide 27 mmol/L (22.0-30.0); Chloride 104 mmol/L (98-107); Creatinine Clearance Estimated 94 mL/min (50-200); Estimated Glomerular Filt Rate 85 ml/min (>60); GFR (African American) 103 ML/MIN (>60); Globulin 2.8 g/dL (1.3-3.2); Glucose 106 mg/dl (74-100); Potassium 4.4 mmoL/L (3.5-5.1); Sodium 138 mmol/L (136-145)
[2025-04-23 10:13] LABS: Creatinine,Urine Random 93 mg/dL (Not Estab.); Microalbumin < 6.000 mg/L (0-16.7)
[2025-04-23 10:17] LABS: HCG Qualitative, Serum Negative (Negative)
[2025-04-23 10:21] LABS: Direct LDL Cholesterol 104.88 mg/dL (100-129)
[2025-04-23 10:41] LABS: Thyroid Stimulating Hormone 2.15 uIU/mL (0.465-4.68)
[2025-04-23 10:43] LABS: 25-OH Vitamin D, Total 26.8 ng/mL (30-100); Hemoglobin A1C 6.7 % (4.0-6.0)
[2025-04-23 10:59] LABS: Vitamin B12 510 pg/mL (239-931)
== END 2025-04-23 23:59 | disposition home or self-care (01) ==
LOC: PREOP 09:07
PROVIDERS: PCP Nurse Practitioner; Visit Provider Obstetrics & Gynecology
DX: Z01.810 Encounter for preprocedural cardiovascular examination (principal); Z01.812 Encounter for preprocedural laboratory examination; R94.31 Abnormal electrocardiogram [ECG] [EKG]; I10 Essential (primary) hypertension; Z13.1 Encounter for screening for diabetes mellitus; Z13.220 Encounter for screening for lipoid disorders
CPT/HCPCS: 80053; 80061; 82043; 82306; 82570; 82607; 83036; 84443; 84703; 85025

== ENCOUNTER 2025-04-29 06:04 | Day surgery (SDC) | payer BC, SELFPAY ==
[2025-04-23 13:55] VITALS: BMI 26.4
[2025-04-29] VITALS (10 sets, daily range): BP systolic 141–176; BP diastolic 71–101; PULSE 69–80; RESP 14–18; TEMP 36.2–36.8; O2SAT 92–96
[2025-04-29] MEDS: ACETAMINOPHEN 500MG TAB 1000 MG PO (06:36)
[2025-04-29] MEDS: LACTATED RINGERS 1000ML 1,000 ML 25 ML IV (06:39)
--- NOTE | 2025-04-29 07:18 | EXP.ANES.CKL ---
[facility] Disclaimer: The information contained in this section may have been updated after the patient was seen, as this information can be updated by other users. Medical History Abnormal finding on ultrasound Endometrial thickening on ultrasound Essential hypertension Difficulty voiding Mixed incontinence urge and stress Carmelo hematuria Surgical History Hx of appendectomy Hx of cholecystectomy Hx of breast reduction, elective Hx of rotator cuff surgery History of ankle surgery Family History Other Arthritis Family history of heart disease Hypertension Social History Smoking Status: Never smoker alcohol intake: never substance use type: unknown current occupational status: employed Travel in the last 8 weeks?: None [facility] Anesthesia Checklist Patient Identification Patient Identification: Arm Band and Verbal (Name & ) Structural Data Admitted From: Home Planned Operative Procedure/s: hysterscopy and D&C Consent for Planned Operative Procedure(s) Verified: Yes Verified Documents: Surgical Consent and History and Physical NPO Status Verified Time NPO: 00:00 Additional verifications Anesthesia Reactions: No Hx Blood Transfusions: No Blood Transfusion Reaction: No Airway Assessment Mallampati Score:: Class I Dentition: Good Dentition Neurological Assessment Level of Consciousness: Awake, Alert and Appropriate Hx Seizures: No Anesthesia Plan Anesthesia Risk discussed: Yes Anesthesia Plan: Verified ASA Class: II Anesthesia Type: General
--- NOTE | 2025-04-29 08:17 | P.PNANES_ITS ---
[facility] Anesthesia Record Part I Anesthesia Record I Intake, IV Amount: 600 Hydration: Adequate Estimated blood loss (mL): 0 Urine output (mL): 0 Blood Pressure: 167/85 SaO2: 94 Pulse Rate: 78 Airway Patency: Patent Respiratory Rate: 14 Temperature: 98 F Patient is:: Awake, Drowsy, Nasal O2 and Stable Stable to PACU at:: 08:21
[2025-04-29] MEDS: ONDANSETRON 4MG/2ML VIAL 4 MG IV (08:32)
[2025-04-29] MEDS: KETOROLAC 30MG/ML VIAL 30 MG IV (08:37)
--- NOTE | 2025-04-29 08:49 | P.OP_ITS ---
Date of procedure: 04/29/25 Pre-op Diagnosis:: 1. Thickened endometrium 2. Abnormal ultrasound finding Post-op Diagnosis:: 1. Thickened endometrium 2. Abnormal ultrasound finding 3. Endometrial polyp in lower uterine segment Procedure performed:: Hysteroscopy, dilation and curettage with Myosure Surgeon:: Kimberley Orlando DO Crusher Operator(s):: N/a TAPER/FINISHER:: Melody Bonner Anesthesia: GETA Estimated blood loss (mL): 0 Clinical Note:: Mrs Magy Resendiz is a 59 yo P1001 who presents to [facility] for scheduled surgery. She was referred to [facility] for mixed urinary incontinence, difficulty voiding, gross hematuria. She met with UroGyn and pelvic ultrasound was ordered for possible postmenopausal bleeding with gross hematuria. Pelvic ultrasound was performed at [facility] on 04/01/25. Ultrasound demonstrated retroverted uterus normal in shape and size. Within the anterior myometrium are 3 small fibroids. The largest measures 1.6 cm. 2. The endometrium appears thickened in the lower uterine segment and there is a small amount of fluid here as well. The endometrium here appears multicystic. Suggest endometrial sampling. 3. Both ovaries are seen and appear normal. The left ovary is slightly larger than the right ovary. There is a follicle in the right ovary measuring 1.2 cm. 4. No fluid in the cul-de-sac. Operative findings:: 1. On bimanual exam, uterus is normal size and shape, retroverted. No adnexal masses palpated 2. On hysteroscopic exam, bilateral tubal ostia easily visualized, normal atrophic appearing enodmetrium. Endometrial polyp noted at lower uterine segment. Operative note:: Risks, benefits and alternatives were discussed with the patient. Risks include but are not limited to bleeding, infection, uterine perforation and VTE. Patient voiced understanding and agreed to proceed. She was wheeled back to the operating room and placed under general anesthesia without difficulty. She was placed in dorsal lithotomy position and prepped and draped in the normal sterile fashion. A bimanual exam was performed. A weighted Auvard was placed in the vaginal vault. Single tooth tenaculum was placed on posterior lip of the cervix. Uterus sounded to 7. Sequential Jose dilators were used to dilate the cervical os. Hysteroscope was tested inserted through the cervix without difficulty. Endometrial cavity was evaluated. See findings above. Pictures were taken. Myosure was inserted through the Hysteroscope. Polypectomy was performed with Myosure. Next, Myosure curettage was performed under direct visualization per protocol. The endometrial cavity was curetted with a systematic [id number] movement of the curette so that all possible endometrium was sampled. Endometrial curettings will be sent to pathology for review.?In addition, a medium size sharp curette was inserted through the cervix into the uterine cavity and endometrium was curetted with a systematic back and forth movement in a 360 degree manner. All endometrial curettings will be sent to pathology for review. Instruments were removed from the vagina. Tenaculum site was hemostatic. Patient was awaken from anesthesia without difficulty. She was transported to recovery room in stable condition. Patient will be discharged home when awake and ambulating. She was given postop instructions as well as instructions to follow-up in the office in 2 weeks at which time pathology will be reviewed. Condition: stable Disposition: same day Specimens:: 1. Endometrial curettings Complications:: None
--- NOTE | 2025-04-29 10:16 | EXP.ANES.II ---
[facility] Anesthesia Record Part II Anesthesia Record Part II Discharge Time: 08:41 Destination: Surgical Day Care (OP Surgery) PACU nurse assessment reviewed?: Yes Patient Condition:: Good Anesthesia Complications:: None Swallowing reflex intact?: Yes Airway Patency: Patent Cyanosis?: No Blood Pressure: 152/83 SaO2: 96 Respiratory Rate: 16 Pulse Rate: 71 Temperature: 98.2 F Mental Status: Alert & Oriented Pain level:: 5 Nausea and/or vomitting:: None Intake, IV Amount: 0 Hydration: Adequate
== END 2025-04-29 09:29 | disposition home or self-care (01) ==
PROVIDERS: PCP Nurse Practitioner; Visit Provider Obstetrics & Gynecology
PROC: 0UDB8ZZ Extraction of Endometrium, Via Natural or Artificial Opening Endoscopic (ICD-10-PCS; CPT 58558; principal; 2025-04-29 07:30)
DX: N84.0 Polyp of corpus uteri (principal); N39.46 Mixed incontinence; D25.9 Leiomyoma of uterus, unspecified; R31.0 Gross hematuria; I10 Essential (primary) hypertension; R93.89 Abnormal findings on diagnostic imaging of other specified body structures; Z88.5 Allergy status to narcotic agent; Z79.899 Other long term (current) drug therapy; Z79.890 Hormone replacement therapy; Z82.49 Family history of ischemic heart disease and other diseases of the circulatory system
CPT/HCPCS: 58558; J1100; J1885; J2003; J2405; J2704; J3010; J7120

== ENCOUNTER 2025-07-16 07:50 | Outpatient (CLI) | payer BC, SELFPAY ==
--- OUTSIDE RECORDS SUMMARY | 2025-07-16 07:53 | XMS_ITS | Clinical Summary ---
Author Organization [facility] Address [address], [address] [place] [address] Care Team Providers Care Transverse Abdominal Muscle Surgeon Name Role Phone NuñezJeny DANIEL - REAL ESTATE BRANCH MANAGER Primary Care Provider + Allergies No known [...] Plan of Treatment Not on file Insurance [place] BCBS Care Teams Transverse Abdominal Muscle Surgeon Relationship Specialty Start Date End Date Jeny Nuñez APRN - NP PCP - General 07/09/17
--- OUTSIDE RECORDS SUMMARY | 2025-07-16 07:53 | XMS_ITS | Encounter Summary ---
Author Organization [facility] Address [address] [place] [address] Care Team Providers Care Hydrography Teacher Name Role Phone Jessie Castaneda DO Primary Care Provider [phone] Reason for Visit * Reason Comments Med Refill Encounter Details Date Type Department Care Team (Late st Contact Info) Description 04/16/2025 Refill [facility] Internal Medicine [address] [place] [address] Jessie Castaneda DO [address] [place] [address] Generalized anxiety disorder Social History [...] place to sleep or slept in a fci (including now)? No 01/24/2024 Utilities Answer Date [...] documented as of this encounter Care Teams Hydrography Teacher Relationship Specialty Start Date End Date Jessie Castaneda DO [address] [address] PCP - General Internal Medicine 01/24/22 documented as of this encounter
--- OUTSIDE RECORDS SUMMARY | 2025-07-16 07:53 | XMS_ITS | Encounter Summary ---
Author Organization [facility] Address [address] [place] [address] Care Team Providers Care Navigation Officer Name Role Phone Ritu Man ASSISTANT TECHNICIAN Primary Care Provider [phone] Jessie Castaneda DO Primary Care Provider [phone] Jose Daniel Garcia MD Unavailable [phone] Reason for Visit * Reason Onset Date Comments Med Refill 11/14/2021 Encounter Details Date Type Department Care Team (Late st Contact Info) Description 11/14/2021 Refill Family and Community Medicine [address] [place] [address] Ritu Man APRN [address] [place] [address] Acute pain of right shoulder [...] documented as of this encounter Care Teams Navigation Officer Relationship Specialty Start Date End Date Ritu Man APRN [address] [place] [phone] PCP - General Family Medicine 07/19/21 01/23/22 Jessie Castaneda DO [address] [address] PCP - General Internal Medicine 01/24/22 Jose Daniel Garcia MD [address] [place] [id number] Resident Internal Medicine 12/26/22 04/10/23 documented as of this encounter
--- OUTSIDE RECORDS SUMMARY | 2025-07-16 07:53 | XMS_ITS | Clinical Summary ---
Author Organization [facility] Address [address] [place] [address] Care Team Providers Care Wheel And Caster Repairer Name Role Phone Snow Peterson MD Primary Care Provider [phone] Medications hepatitis A (HAVRIX) 1440 EL U/ML vaccine Inject as directed per protocol and repeat in 6 months 1 mL 1 10/07/2018 2:20 PM EST 10/07/2018 Active ondansetron (ZOFRAN) 4 MG tablet Take 1 tablet by mouth every 6 to 8 hours as needed 30 tablet 2 09/05/2020 11:56 AM EST 01/18/2020 Active ondansetron (ZOFRAN) 4 MG tablet Take 1 tablet by mouth every 6 to 8 hours as needed for nausea and vomiting 30 tablet 2 05/22/2021 1:14 PM EDT 12/19/2020 Active Immunizations Immunization Administration Dates Next Due COVID-19 (MODERNA) 1st,2nd,3rd Dose Monovalent 0 11/21/2020,10/24/2020 Hepatitis A 10/07/2018 04/07/2019 Social History Tobacco Use Types Packs/Day Years Used Date Smoking Tobacco: Never Assessed Abuse Screen Answer Date Recorded Unsafe at Home or Work/School Not on file Feels Threatened by Someone? Not on file 08/2023 Does Anyone Keep You from Co ntacting Others or Doint Things Outside the Home? Not on file 08/07/2023 Physical Sign of Abuse Present Not on file 1 Housing Stability Answer Date Recorded Current Living Arrangements Not on file 07/28 Potentially Unsafe Housing Conditions Not on alejandro e 08/07/2023 Family and Community Support Answer Tavo e Recorded Help with Day-to-Day Activities Not on file 08/07/2023 Lonely or Isolated Not on file 08/07/2023 Employment Answer Date Recorded Do you want help finding or keeping work or a whitney b? Not on file 08/07/2023 Disabilities Answer Date Recorded Concentrating, Remembering, or Making Decisions Difficulty Not on file 08/07/2023 Doing Errands Independently Difficulty Not on fi le 08/07/2023 Education Answer Date Recorded Help with school or training? Not on file Preferred Language Not on file 08/07/2023 Comments Unknown Sex and Gender Information Value Date Recorded Sex Assigned at Not on file Legal Sex Female 11:00 AM EST Gender Identity Not on file Sexual Orientation Not on file Plan of Treatment Health Maintenance Due Date Last Done Comments ANNUAL PHYSICAL 1965 Annual Gynecologic Pelvic and Breast Exam 1965 HEPATITIS C SCREENING 1965 TDAP/TD VACCINES (1 - Tdap) 1983 COLOGUARD 2009 COLON CANCER SCREENING 5 YEA R SIGMOIDOSCOPY 2009 COLONOSCOPY [address]CER SCREENING [address] COLONOGRAPHY 2009 FECAL OCCULT BLOOD TEST 2009 FIT Testing (1 year) 2009 Pneumococcal Vaccine 50+ (1 of 1 - PCV) 2014 ZOSTER VACCINE (1 of 2) 2014 MAMMOGRAM 02/08/2018 02/09/2016 COVID-19 Vaccine ( season) 2025, 10/24/2020 INFLUENZA VACCINE 07/28/2025 Procedures Procedure Name Priority Date/Time Associated Diagnosis Comments MAMMO SCREENING DIGITAL TOMOSYNTHESIS LEFT W CAD Routine 02/09/2016 9:32 AM EDT from Last 3 Months or Most Recently Relevant to Health Maintenance Results * Mammo screening digital tomosynthesis left w CAD (02/09/2016 9:32 AM EDT) Anatomical Region Laterality Modality Breast Left Mammography 02/09/2016 9:32 AM EDT Narrative 02/09/2016 9:33 AM EDT [facility] [address] [place] [address] Mammography Report [id number] Signed PATIENT NAME: THOMPSON RESENDIZ : 1965 [id number] ATTENDING: DENIS BRONSON MD DATE OF EXAM: 02/09/16 PRIMARY CARE: DENIS BRONSON MD LOCATION: RAD ORDERING PHYSICIAN: DENIS BRONSON MD PROCEDURE(s): DIGITAL BILAT SCREENING TOMOG ORDER NUMBER(s): [id number] CC: DENIS BRONSON MD DIGITAL BILATERAL SCREENING TOMOG- CLINICAL INDICATION: Routine/ outside films. TECHNIQUE: Bilateral CC and MLO views were obtained with both 2-D and 3-D acquisitions. The study was read with the assistance of CAD. COMPARISON: There are no prior studies at this institution for comparison. The patient does report prior outside examinations which are currently unavailable. An addendum can be added to this report upon receiving prior studies for comparison purposes which is always recommended. FINDINGS: The breast parenchyma is extremely dense. This lowers sensitivity of mammography. Moderate diffuse parenchymal nodularity is demonstrated without a dominant mass lesion identified in either breast. There are no suspicious masses, areas of architectural distortion or clustered microcalcifications. IMPRESSION- BI-RADS CATEGORY: 2 , BENIGN FINDING(S). RECOMMENDED FOLLOW-UP: 12M FOLLOW UP SCREENING MAMMOGRAM IN ONE YEAR. NOTES: Mammography does not detect approximately 10-15% of breast cancers. Physical examination of the breasts by a physician and regular monthly breast self examinations are integral parts of breast cancer screening. A normal mammogram does not exclude breast cancer if there is an abnormal finding on physical examination. When clinically indicated, a biopsy should not be postponed because of a normal mammogram report. [place]. [address] NOTE: If a biopsy is performed on this patient, a copy of the pathology report would be appreciated. This report was finalized on 02/10/2016 8:57 AM by Manju Leslie MD. DICTATED BY: MANJU LESLIE MD DICTATED DATE/TIME: 02/09/16 0932 TRANSCRIBED DATE/TIME: 02/10/16 0857 CC: DENIS BRONSON MD Procedure Note Manju Leslie MD - 02/10/2016 [place] [id number] Mammography Report [id number] Signed PATIENT NAME: THOMPSON RESENDIZ : 1965 ATTENDING: DENIS BRONSON MD DATE OF EXAM: 02/09/16 PRIMARY CARE: DENIS BRONSON MD LOCATION: RAD ORDERING PHYSICIAN: DENIS BRONSON MD PROCEDURE(s): DIGITAL BILAT SCREENING TOMOG ORDER NUMBER(s): [id number] CC: DENIS BRONSON MD DIGITAL BILATERAL SCREENING TOMOG- CLINICAL INDICATION: Routine/ outside films. TECHNIQUE: Bilateral CC and MLO views were obtained with both 2-D and 3-D acquisitions. The study was read with the assistance of CAD. COMPARISON: There are no prior studies at this institution for comparison. The patient does report prior outside examinations which are currently unavailable. An addendum can be added to this report upon receiving prior studies for comparison purposes which is always recommended. FINDINGS: The breast parenchyma is extremely dense. This lowers sensitivity of mammography. Moderate diffuse parenchymal nodularity is demonstrated without a dominant mass lesion identified in either breast. There are no suspicious masses, areas of architectural distortion or clustered microcalcifications. IMPRESSION- BI-RADS CATEGORY: 2 , BENIGN FINDING(S). RECOMMENDED FOLLOW-UP: 12M FOLLOW UP SCREENING MAMMOGRAM IN ONE YEAR. NOTES: Mammography does not detect approximately 10-15% of breast cancers. Physical examination of the breasts by a physician and regular monthly breast self examinations are integral parts of breast cancer screening. A normal mammogram does not exclude breast cancer if there is an abnormal finding on physical examination. When clinically indicated, a biopsy should not be postponed because of a normal mammogram report. [place]. [address] NOTE: If a biopsy is performed on this patient, a copy of the pathology report would be appreciated. This report was finalized on 02/10/2016 8:57 AM by Manju Leslie MD. DICTATED BY: MANJU LESLIE MD DICTATED DATE/TIME: 02/09/16 0932 TRANSCRIBED DATE/TIME: 02/10/16 0857 CC: DENIS BRONSON MD Denis Nickerson MD IMG MAMMOGRAPHY ORDERABLES Edited Result - Final from Last 3 Months or Most Recently Relevant to Health Maintenance Insurance [facility] PPO Care Teams Wheel And Caster Repairer Relationship Specialty Start Date End Date Snow Peterson MD PCP - General Family Medicine 10/24/20
--- OUTSIDE RECORDS SUMMARY | 2025-07-16 07:53 | XMS_ITS | Clinical Summary ---
Author Organization [facility] Address [address] [place] [address] Care Team Providers Care Marketing Communications Manager Name Role Phone Jessie Castaneda Primary Care Provider [phone] Allergies No known active allergies Medications Red [...] 08/05/2015 MMR 12/27/2015, 07/01/2018 Moderna COVID-19 Vaccine (It Application Support Analyst) 12+ years 10/24/2020, 11/21/2020 Pfizer-BioNTech COVID-19 Bivalent Booster (Perdomo Cap) 12+ years (delicia-sucrose) 07/24/2022 Pfizer-BioNTech COVID-19 Vaccine (Purple Cap) 12+ 08/19/2021 Tdap 10/28/2015, 01/28/2024 Zoster, Recombinant 12/26/2022, 03/27/2023 Cancer Screenings Cervical cancer: Last pap smear 01/2024 with negative cytology and HPV co- testing, repeat 01/2029. Breast cancer: Last mammogram 06/2022 with BIRADS 1, repeat in 06/2023. Overdue, re-ordered. 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 [...] 08/05/2015 MMR 12/27/2015, 07/01/2018 Moderna COVID-19 Vaccine (It Application Support Analyst) 12+ years 10/24/2020, 11/21/2020 Pfizer-BioNTech COVID-19 Bivalent [...] 06/2023. ? 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 Dentist: sees regularly ? Dermatology: [...] Date Type Department Care Team Description 04/16/2025 [facility] Internal Medicine [address] [place] [address] Jessie Castaneda, DO Generalized anxiety disorder from [...] place to sleep or slept in a care home (including now)? No 01/24/2024 Utilities Answer Date [...] Years (1 of 1 - PCV) 2014 [facility]-Breast Cancer Screening 07/23/202406/29, 12/20/2020, 07/05/2015 [facility]-Depression Screening 01/27/2025 01/28/2024, 06/29 [id number] Vaccine ( season) 2025 07/24/2022, 08/19/2021, 11/21/2020, Additional history exists [facility]-Influenza Vaccine (#1) 06/28/202507/24, 07/17/2021, 07/21/2020, Additional history exists FIT-DNA 01/04/2027 [...] topic Medical Devices Implanted Type Area Green Chain Worker Device Identifier Shelf Expiration Date Model / Serial / Lot [place] All Suture Qfix 2.8mm - [id number] Implanted:Qty : 1 on 11/24/2021 by Renato Heath MD at [facility] [place] Right: Shoulder [employer] (Acu[employer]x)-[id number] 2024 25-2800 / / [id number] [place] Ultra Twinfix 5.5 - [id number] - [id number] Implanted:Qty : 1 on 11/24/2021 by Renato Heath MD at [facility] Right: Shoulder [employer] (Acu[employer]x)-[id number] 07/04/2026 [id number] / [id number] / Procedures Procedure Name Priority Date/Time Associated [...] 9:13 AM EDT) Case Report Cytology Case: [id number] Authorizing Provider: Jessie Castaneda DO Collected: 01/28/202413 Ordering Location: [facility] Received: 01/29/2024 0924 Internal Medicine First Screen: Madeline Soto Specimen: ThinPrep Pap Test, Liquid-Based Cervical/Vaginal 02/10/2024 2:26 PM EDT [facility] Interpretation NEGATIVE FOR INTRAEPITHELIAL LESION OR MALIGNANCY 02/10/2024 2:26 PM EDT [facility] at 1426 EDT Specimen Adequacy Satisfactory for evaluation; endocervical/membreno sformation zone component present. Slide scanned and imaged by ManaltoPrep Imaging System with manual review of all selected brown. 02/10/2024 2:26 PM EDT [facility] Cervical cytology is a screening [...] results is suggested (please call Microbiology at [phone] for results). 02/10/2024 2:26 PM EDT [facility] Menstrual Status Post-Menopausal 2:26 PM EDT [facility] Contraceptive History Not Applicable 02/10/2024 2:26 PM EDT [facility] Screening Type Routine Screen 2023 2:26 PM EDT [facility] High Risk? No 02/10/2024 2:26 PM EDT [facility] HPV Testing Requested? Request HPV Testing Regardless of Pap Test Findings 02/10/2024 2:26 PM EDT [facility] Previous Cancer History No 02/10/2024 2:26 PM EDT [facility] Clinical Information Z00.00 - Healthcare maintenance [ICD-10-CM] 02/10/2024 2:26 PM EDT [facility] Swab Vaginal and cervical cytologic material / Unknown Non-blood Collection / Unknown 01/28/2024 9:13 AM EDT 01/29/2024 9:24 AM EDT us Jessie Castaneda DO LAB CYTOLOGY ORDERABLES Final Result [facility] [address] [place] [address] * Cologuard?? colon cancer screening (01/05/2024 11:00 AM EDT) Cologuard Negative Negative 01/12/2024 12:05 AM EDT [facility] (CLIA #:[id number]) Comment: NEGATIVE TEST RESULT. A negative Cologuard [...] (Aguila Becker al, N Engl J Med 2014;370(14):8146-1526) The normal value (reference range) for this assay is negative. COLOGUARD RE-SCREENING RECOMMENDATION: Periodic colorectal cancer screening is an important part of preventive healthcare for asymptomatic individuals at average risk for colorectal cancer. Following a negative Cologuard result, the [place] Cancer Society and U.S. Multi-Society Task Force screening guidelines recommend a Cologuard re-screening interval of 3 years. References: [place] Cancer Society Guideline for Colorectal Cancer Screening: https://www.cancer.org/cancer/vphzm-flhexm-vfgwdg/hjtlqhont-pnhatswpv-vbfwnbf/ac s-rec ommendations.html.; Khurram DK, Yomaira CR, Burak ChristensenK, Colorectal Cancer Screening: Recommendations for Physicians and Patients from the U.S. Multi-Society Task Force on Colorectal Cancer Screening , Am J Gastroenterology 2017; 112:2869-5270. TEST DESCRIPTION: Composite algorithmic analysis of stool [...] (Aguila Becker al, N Engl J Med 2014;370(14):9439-3544.) Cologuard may produce a false negative or false positive result (no colorectal cancer or precancerous polyp present at colonoscopy follow up). A negative Cologuard test result does not guarantee the absence of CRC or advanced adenoma (pre-cancer). The current Cologuard screening interval is every 3 years. ([place] Cancer Society and U.S. Multi-Society Task Force). Cologuard performance data in a 10,000 patient pivotal study using colonoscopy as the reference method can be accessed at the following location: www.PointsHound.Rendeevoo/results. Additional description of the Cologuard test process, warnings and precautions can be found at www.[employer]ogAlphaBoostrd.com. Stool specimen (specimen) 01/05/2024 11:00 AM EDT 01/07/2024 9:23 AM EDT us Jessie Castaneda DO LAB MOLECULAR DIAGNOSTICS GEOVANNA SOTO Final Result [facility] (CLIA #:[id number]) [address] [place] [address], * Mammography Breast Screening Tomosynthesis Bilateral (07/23/2022 [...] to: 10/15/2017 Mammography Outside Images Upload at [facility] 12/20/2020 Mammography Outside Images Upload at [facility] BREAST COMPOSITION: The breasts have scattered areas [...] to Health Maintenance Insurance MARIELLA Care Teams Marketing Communications Manager Relationship Specialty Start Date End Date Jessie Castaneda DO [address] [address] PCP - General Internal Medicine 01/24/22
--- OUTSIDE RECORDS SUMMARY | 2025-07-16 07:53 | XMS_ITS | Clinical Summary ---
Author Organization [facility] Address [address] [place] [phone] Phone Care Team Providers Care Grounds Caretaker Name Role Phone Unavailable Primary Care Provider [...] 50+ (1 of 1 - PCV) 2014 Breast Cancer Screening 07/23/2024 07/23/2022, 07/23 COVID-19 Vaccine ( season) 2025 07/24/2022, 08/19/2021, 11/21/2020, Additional history exists Influenza Vaccine (#1) 2025 , 07/17/2021, 07/21/2020, Additional history exists Cervical Cancer Screening 01/27/2027 Pap Smear 01/27/2027 01/28/2024, 01/28/2024 DTaP/TDaP/Td (3 - Td or Tdap) 01/27/2034 01/28/2024, 10/28/2015 Zoster Completed 03/27/2023, 12/26/2022 Hepatitis B Vaccine Aged Out No longe r eligible based on patient's age to complete this topic Meningococcal B Vaccine Aged Out No l onger eligible based on patient's age to complete this topic Insurance [facility] [address] [id number] MARIELLA PPO MARIELLA PPO
--- NOTE | 2025-07-16 08:00 | CA_ITS ---
APPROVED REPORT EXAM: Comprehensive 2D, Doppler, and color-flow Echocardiogram Drupal Architect: PERCY Antunez, RVS Ht: 5 ft 4 in Wt: 150lbs BSA: 1.73 BP: 144/96 mmHg Indications: HTN, SOB 2D Dimensions LA Volume 59.40 mL LA Volume Index 33.60 mL/m2 (M/F) 16-34 M-Mode Dimensions RVDd 2.56 cm (0.9-2.6) LA Diam 3.23 cm (1.9-4.0) LVDd 4.24 cm (3.5-5.7) LVDs 2.52 cm (3.5-5.7) IVSd 1.11 cm (0.6-1.1) PWd 0.84 cm (0.6-1.1) EF (Teich) 71.60% EPSs 0.30 cm FS 40.60% EDV (Teich) 80.40 mL TAPSE 2.59 (<1.7) ESV (Teich) 22.80 mL LV Diastology E Decel Time 227 (160-240 msec) E/A Ratio 0.65 MED A' 9.00 cm/s LAT A' 11.30 cm/s Aortic Valve AoV Peak Sage. 137.0 (50-130 cm/s) AO Peak GR. 7.50 mmHg AO Mean GR. 3.70 (<5 mmHg) AO VTI 29.7 (18-25 cm) Mitral Valve MV A Velocity 89.0 (40-130 cm/s) E/A Ratio 0.65 Left Ventricle The left ventricle is normal size. Left ventricular systolic function is normal. The left ventricular ejection fraction is within the normal range. There is increased left ventricular wall thickness. There is normal LV segmental wall motion. Transmitral Doppler flow pattern suggests impaired LV relaxation. LVEF is 55% Right Ventricle The right ventricle is normal size. The right ventricular systolic function is normal. Atria Left atrium is mildly dilated. Right atrium is mildly dilated. There is no color Doppler evidence of interatrial shunt. Aortic Valve The aortic valve opens well. There is no hemodynamically significant aortic valvular stenosis. No aortic regurgitation is present. Mitral Valve The mitral valve is normal in structure. No evidence of mitral valve stenosis. Trace mitral regurgitation is present. Tricuspid Valve The tricuspid valve leaflets are thin and pliable. Trace tricuspid regurgitation. There is insufficient TR jet to estimate RVSP. Pulmonic Valve The pulmonary valve is grossly normal in structure. Trace pulmonic valve regurgitation is present. Great Vessels The aortic root is normal in size. IVC is normal in size and collapses >50% with inspiration. Pericardium There is no pericardial effusion. Other Information Study Quality: Fair Conclusion Normal biventricular systolic function. Mild biatrial dilation. No significant valvular stenosis or regurgitation. Electronically signed by : Patricia Lutz MD 07/18/2025 18:33:54
== END 2025-07-16 23:59 | disposition home or self-care (01) ==
LOC: RT 07:51
PROVIDERS: PCP Nurse Practitioner; Visit Provider Nurse Practitioner
DX: I11.9 Hypertensive heart disease without heart failure (principal); Z82.49 Family history of ischemic heart disease and other diseases of the circulatory system
CPT/HCPCS: 93306